=== PATIENT | female | born 1980 | race Caucasian/White ===

== ENCOUNTER 2017-06-26 23:29 | Emergency (ER) | payer OTHER ==
[~2017-06-26] VITALS: Ht 160 cm; Wt 86.1 kg
[~2017-06-26 23:29] MED LIST: Motrin PO; Normodyne,Trandate PO; PAXIL20 MG PO; Percocet 5/325,Endoc PO; Zoloft PO
[2017-06-26 23:54] LABS: HEMATOCRIT 39.3 % (36.0-46.0); HEMOGLOBIN 13.8 G/DL (11.9-15.5); MCH 29.4 PG (29.0-34.0); MCHC 35.1 G/DL (30.0-36.0); MCV 83.8 FL (83-99); PLATELET COUNT 342 K/uL (156-360); RBC DIS.WIDTH-CV 12.1 % (11.8-14.6); RBC DIS.WIDTH-SD 36.9 % (39-53); RED BLOOD COUNT 4.69 M/uL (3.80-5.20); WHITE BLOOD COUNT 9.7 K/uL (4.1-10.2)
[2017-06-27 00:03] LABS: CHLORIDE 104 mEq/L (99-109); POTASSIUM 3.8 mEq/L (3.7-5.4); SODIUM 139 mEq/L (136-147)
[2017-06-27 00:05] LABS: GLUCOSE 117 mg/dL (70-99)
[2017-06-27 00:09] LABS: CREATININE 1.2 mg/dL (0.6-1.3); GFR ESTIMATE (CALCULATED) 54 mL/min/
[2017-06-27 00:10] LABS: UREA NITROGEN (BUN) 19 mg/dL (9-23)
[2017-06-27 00:11] LABS: APPEARANCE SL.HAZY ((CLEAR)); BILIRUBIN NEGATIVE; BLOOD SMALL; COLOR YELLOW ((YELLOW)); GLUCOSE (STRIP) NEGATIVE; KETONES NEGATIVE; LEUKOCYTES NEGATIVE; NITRITE NEGATIVE; PROTEIN (STRIP) NEGATIVE; SPECIFIC GRAVITY 1.026 (1.000-1.030); UROBILINOGEN 0.2 MG/DL (0.2-1.0)
[2017-06-27 00:28] LABS: BACTERIA NONE SEEN /HPF; EPITHELIAL CELLS 1+ /HPF; MUCUS TRACE /LPF; UCUL ADDED? NO; WHITE BLOOD CELLS 0-5 /HPF (0-5)
[2017-06-27] MEDS ORDERED: FLOMAX0.4 MG PO (00:57)
[2017-06-27] MEDS ORDERED: PERCOCET 5/31 TABLET PO (00:59)
[2017-06-27 02:32] VITALS: BP 144/89
== END 2017-06-27 02:36 | disposition home or self-care (01) ==
LOC: EXP 23:29 → EME 23:29 → EXP 06-27 02:36
DX: N13.2 Hydronephrosis with renal and ureteral calculous obstruction (principal); Z87.442 Personal history of urinary calculi; F17.200 Nicotine dependence, unspecified, uncomplicated
CPT/HCPCS: 74176; 80048; 81003; 85027; 99281; 99284; J1885; J2270

== ENCOUNTER 2018-02-06 12:25 | Emergency (ER) | payer OTHER ==
[~2018-02-06] VITALS: Ht 160 cm; Wt 86.8 kg
[~2018-02-06 12:25] MED LIST changes: +FLOMAX0.4 MG PO; +PERCOCET 5/31 TABLET PO
[2018-02-06 12:57] LABS: HEMATOCRIT 40.4 % (36.0-46.0); HEMOGLOBIN 14.3 G/DL (11.9-15.5); MCH 29.2 PG (29.0-34.0); MCHC 35.4 G/DL (30.0-36.0); MCV 82.6 FL (83-99); PLATELET COUNT 316 K/uL (156-360); RBC DIS.WIDTH-CV 11.8 % (11.8-14.6); RBC DIS.WIDTH-SD 35.1 % (39-53); RED BLOOD COUNT 4.89 M/uL (3.80-5.20); WHITE BLOOD COUNT 7.1 K/uL (4.1-10.2)
[2018-02-06 13:06] LABS: ALBUMIN 4.5 g/dL (3.2-4.8); CHLORIDE 103 mEq/L (99-109); POTASSIUM 3.8 mEq/L (3.7-5.4); SODIUM 140 mEq/L (136-147)
[2018-02-06 13:08] LABS: GLUCOSE 171 mg/dL (70-99)
[2018-02-06 13:09] LABS: TOTAL PROTEIN 7.6 g/dL (6.4-8.3)
[2018-02-06 13:10] LABS: TOTAL BILIRUBIN 0.3 mg/dL (0.0-1.0)
[2018-02-06 13:12] LABS: ALKALINE PHOSPHATASE 81 IU/L (3-129); CREATININE 0.8 mg/dL (0.6-1.3); GFR ESTIMATE (CALCULATED) > 59 mL/min/
[2018-02-06 13:13] LABS: UREA NITROGEN (BUN) 9 mg/dL (9-23)
[2018-02-06 13:14] LABS: AST (GOT) 17 IU/L (2-34)
[2018-02-06 13:15] LABS: ALT (GPT) 27 IU/L (3-49)
[2018-02-06 13:21] LABS: TROP-I INTERPRETATION NEGATIVE; TROPONIN-I < 0.01 ng/mL (0.0-0.30)
[2018-02-06 15:41] VITALS: BP 172/118
== END 2018-02-06 15:40 | disposition home or self-care (01) ==
LOC: EME 12:25
PROVIDERS: Emergency Medicine Emergency Medical Services
DX: R00.2 Palpitations (principal); R42 Dizziness and giddiness; F32.9 Major depressive disorder, single episode, unspecified; F41.9 Anxiety disorder, unspecified; F17.200 Nicotine dependence, unspecified, uncomplicated; Z87.442 Personal history of urinary calculi
CPT/HCPCS: 71045; 80053; 84484; 85027; 93005; 99281; 99284